=== PATIENT | female | born 1950 | race Caucasian/White ===

== ENCOUNTER 2018-03-08 16:16 | Inpatient (IN) | payer OTHER, BC ==
[~2018-03-08] VITALS: Ht 160 cm; Wt 64.4 kg
--- NOTE | ~2018-03-08 | 2DMMODE ---
[facility] [place] [address] 2 D/M-MODE ECHOCARDIOGRAM Name: ASHLEYJUANITO Room #: 462-P ADM IN [facility]#: [id number] Admission: 03/08/18 Attend Phys: Reagan Norman Discharge: Date of : 48 Date of Service: 03/09/18 0926 Report #: [id number] THIS REPORT FOR: //name// APPROVED REPORT Study performed: 03/09/2018 08:20:11 EXAM: Comprehensive 2D, Doppler, and color-flow Echocardiogram Patient Location: In-Patient Room #: 462 Status: routine BSA: 1.67 HR: 62 bpm BP: 121/65 mmHg Other Information Study Quality: Adequate Indications Syncope 2D Dimensions RVDd: 25.58 mm IVSd: 9.78 (7-11mm) LVOT Diam: 21.77 (18-24mm) LVDd: 41.01 mm PWd: 8.45 (7-11mm) Ascending Ao: 31.84 (22-36mm) LVDs: 29.23 (25-40mm) Aortic Root: 29.33 mm IVC: 22.00 mm Volumes Left Atrial Volume (Systole) Single Plane 4CH: 47.64 mL Single Plane 2CH: 67.21 mL LA ESV Index: 36.00 mL/m2 Aortic Valve AoV Peak Juna.: 1.52 m/s AO Peak Gr.: 9.22 mmHg LVOT Max P.29 mmHg LVOT Max V: 1.04 m/s FANNIE Vmax: 2.54 cm2 Mitral Valve E/A Ratio: 1.2 MV Decel. Time: 243.06 ms MV E Max Juan.: 0.73 m/s MV A Juan.: 0.59 m/s [facility] [place] [address] [place] [address] 2 D/M-MODE ECHOCARDIOGRAM Name: JUANITO RAMIREZ Room #: 462-[facility] IN .R.#: [id number] Admission: 03/08/18 Attend Phys: Reagan Norman Discharge: Date of : 48 Date of Service: 03/09/18 0926 Report #: [id number] PHT: 70.49 ms IVRT: 96.89 ms Pulmonary Valve PV Peak Juan.: 0.72 m/s PV Peak Gr.: 2.06 mmHg Pulmonary Vein P Vein S: 0.56 m/s P Vein A: 0.24 m/s P Vein D: 0.25 m/s P Vein A Dur.: 110.7 msec P Vein S/D Ratio: 2.24 Tricuspid Valve TR Peak Juan.: 2.58 m/s RAP Estimate: 5.00 mmHg TR Peak Gr.: 26.53 mmHg PA Pressure: 32.00 mmHg Left Ventricle The left ventricle is normal size. There is normal left ventricular wall thickness. The left ventricular systolic function is normal. The left ventricular ejection fraction is within the normal range. LVEF is 55-60%. The left ventricular diastolic function is normal. Right Ventricle The right ventricle is normal size. The right ventricular systolic function is normal. Atria Left atrium is at the upper limits of normal. The right atrium size is normal. Aortic Valve The aortic valve is normal in structure. No aortic regurgitation is present. There is no aortic valvular stenosis. Mitral Valve The mitral valve is normal in structure. Mild mitral regurgitation. No evidence of mitral valve stenosis. Tricuspid Valve The tricuspid valve is normal in structure. Mild tricuspid regurgitation. PAP is estimated at 32 mmHg. Pulmonic Valve The pulmonary valve is normal in structure. Trace pulmonic regurgitation. [facility] [address] [place] [address] 2 D/M-MODE ECHOCARDIOGRAM Name: ASHLEYSEAN PANDAE Karan Room #: 462-P [facility] IN .R.#: [id number] Admission: 03/08/18 Attend Phys: Reagan Norman Discharge: Date of : 48 Date of Service: 03/09/18 0926 Report #: [id number] Great Vessels The aortic root is normal in size. IVC is upper limits of normal in size and collapses >50% with inspiration. Pericardium There is no pericardial effusion. <Conclusion> The left ventricle is normal size. There is normal left ventricular wall thickness. The left ventricular systolic function is normal. The right ventricle is normal size. Left atrium is at the upper limits of normal. The aortic valve is normal in structure. Mild mitral regurgitation. Mild tricuspid regurgitation. PAP is estimated at 32 mmHg. <ELECTRONICALLY SIGNED> By: Edson Mclaughlin MD 03/09/18925 5 5 Edson Mclaughlin MD /INF
--- NOTE | ~2018-03-08 | EKG ---
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
--- NOTE | ~2018-03-08 | EEG ---
[facility] [place] [address] ELECTROENCEPHALOGRAM Name: JUANITO RAMIREZ Room #: 462-P [facility] IN M.R.#: [id number] Admission: 03/08/18 Attend Phys: Reagan Rush Discharge: 03/09/18 Date of : 48 Report #: [id number] THIS REPORT FOR: //name// CC: Reagan Rucker Duvall Mike Piña DATE OF SERVICE: 03/09/2018 This patient is being evaluated for seizure disorder. EEG was done by placing the electrodes by standard 10/20 system of electrode placement. Both referential and sequential montages were used for recording. Background activity in this patient's EEG is about 11 Hz and 40 microvolt. This is a well-formed background activity. The patient went to sleep that is associated with bilaterally symmetrical sleep spindle and vertex sharp waves. Photic stimulation is unremarkable. Throughout the record, no active epileptiform activity was noticed. IMPRESSION: This patient's EEG is within normal limit. Thank you very much for this referral. By: 1624 1735 Samson Aj MD /nt
[2018-03-08 16:17] VITALS: BP 134/67
[2018-03-08 16:41] LABS: ABSOLUTE NEUTROPHILS 3.6 thou/uL (1.4-8.2); BASOPHILS 0.5 % (0.0-2.0); EOSINOPHILS 1.5 % (0.0-3.0); HEMATOCRIT 38.3 % (37.0-47.0); HEMOGLOBIN 13.3 gm/dL (12.0-15.0); LYMPHOCYTES 25.9 % (24.0-44.0); MCH 32.5 pg (26.0-34.0); MCHC 34.6 g/dL (28.0-37.0); MONOCYTES 8.3 % (1.0-8.0); PLATELET COUNT 148 thou/uL (150-400); POLYS 63.8 % (36.0-66.0); RBC 4.07 mil/uL (4.20-5.00); RDW 12.8 % (10.5-14.5); WBC 5.6 thou/uL (4.0-11.0)
[2018-03-08 16:54] LABS: ANION GAP 14 mmol/L (7-16); BUN 13 mg/dL (7-18); CALCIUM 9.3 mg/dL (8.5-10.1); CHLORIDE 101 mmol/L (98-107); CO2 18 mmol/L (21-32); GLUCOSE 145 mg/dL (74-106); POTASSIUM 3.7 mmol/L (3.5-5.1); SODIUM 133 mmol/L (136-145)
[2018-03-08 17:02] LABS: TROPONIN-I <0.06 ng/mL (<0.06)
[2018-03-08 17:26] LABS: URINE BILIRUBIN NEGATIVE (Negative); URINE BLOOD NEGATIVE (Negative); URINE CLARITY CLEAR; URINE COLOR YELLOW; URINE GLUCOSE-RANDOM* NEGATIVE (Negative); URINE KETONES 1+ (Negative); URINE NITRITE-REFLEX NEGATIVE (Negative); URINE PROTEIN (DIPSTICK) NEGATIVE (Negative); URINE SPECIFIC GRAVITY 1.025 (1.005-1.035); URINE UROBILINOGEN 0.2 E.U./dl (0.2-1.0)
[2018-03-08 17:28] LABS: URINE LEUKOCYTES-REFLEX TRACE (Negative)
[2018-03-08 18:55] LABS: CHOLESTEROL 179 mg/dL (<200); HDL CHOLESTEROL 73 mg/dL (>40); LDL CHOLESTEROL 89 mg/dL (<100); TC:HDL 2.5 Ratio (Not establshd); TRIGLYCERIDE 86 mg/dL (<150); VLDL 17 mg/dL (<40)
[2018-03-08 18:57] VITALS: BP 138/63
[2018-03-08 19:09] VITALS: BP 144/68
[2018-03-08 19:33] LABS: TSH 3.002 uIU/mL (0.358-3.740)
[2018-03-08] MEDS ORDERED: SINGULAIR 10 MG10 M1 PO (19:59)
[2018-03-08] MEDS ORDERED: RALOXIFENE HCL60 MG PO (20:01)
[2018-03-08] MEDS ORDERED: LOSARTAN POTAS100 MG PO (20:02)
[2018-03-08] MEDS ORDERED: PULMICORT FLE180 MCG INH (20:03)
[2018-03-08] MEDS ORDERED: LIPITOR 20 MG T20 M1 PO (20:03)
[2018-03-08] MEDS ORDERED: OMEPRAZOLE 20 M20 M1 PO (20:04)
[2018-03-08 20:07] VITALS: BP 127/58
[2018-03-08 23:45] VITALS: BP 127/58
[2018-03-09 00:18] VITALS: BP 105/46
[2018-03-09 05:04] VITALS: BP 114/51
[2018-03-09 07:25] VITALS: BP 121/65
[2018-03-09 14:15] VITALS: BP 121/65
== END 2018-03-09 14:54 | disposition home or self-care (01) | DRG 70 ==
LOC: ER 16:16 → 4W 18:24 → EROBS 18:24 → 4W 19:44
PROVIDERS: Emergency Medicine; Hospitalist
DX: G93.41 Metabolic encephalopathy (principal); E43 Unspecified severe protein-calorie malnutrition; R56.9 Unspecified convulsions; R10.9 Unspecified abdominal pain; I95.9 Hypotension, unspecified; J45.909 Unspecified asthma, uncomplicated; K21.9 Gastro-esophageal reflux disease without esophagitis; T50.B95A Adverse effect of other viral vaccines, initial encounter; E78.5 Hyperlipidemia, unspecified; Z88.8 Allergy status to other drugs, medicaments and biological substances; Z88.1 Allergy status to other antibiotic agents; Z91.040 Latex allergy status; Z72.89 Other problems related to lifestyle; Z79.899 Other long term (current) drug therapy
CPT/HCPCS: 10045

== ENCOUNTER 2019-10-25 14:24 | Inpatient (IN) | payer OTHER, BC ==
[~2019-10-25] VITALS: Ht 157.5 cm; Wt 58.5 kg
--- NOTE | ~2019-10-25 | EMS ---
[address] [address] EMS Patient Care Report Name: JUANITO RAMIREZ Room #: PRE M.R.#: [id number] Admission: Attend Phys: Discharge: Date of : 48 Report #: [id number] THIS REPORT FOR: //name// Report Transmitted: 10/25/2019 14:18 EMS Care Summary [facility] MED-ACT Incident [id number] @ 10/25/2019 13:42 Incident Location [address] [place] [address] Patient JUANITO RAMIREZ Female, 68 Years 1950 Patient Address [address] [place] [address] Patient History Hypertension (HTN), Patient Allergies Latex allergy,Bee sting allergy,Levaquin, Patient Medications Cardizem, Chief Complaint seizure Disposition Transported No Lights/[place] Reason Unconscious/Fainting Transported To [facility] Narrative Arrived to a residence to find pt supine on the dining room floor, appearing post-ictal and in the care of [facility]FD[facility]31 personnel. Pts reported that they were seated at the table when pts arms suddenly [address] [address] EMS Patient Care Report Name: JUANITO RAMIREZ Room #: PRE M.R.#: [id number] Admission: Attend Phys: Discharge: Date of : 48 Report #: [id number] stiffened and pt was not responding. Pts went over to pt as she collapsed and guided her to the floor. Pts then called 911. Upon arrival of [facility] pt was not convulsing and was arousable to verbal but was not responding verbally. Pt would open her eyes initially and then close them. A non-fitted surgical mask was applied to pt while supine on the floor. Pts reports that pt has one seizure back in February 2018 and was evaluated at [facility]. Pts states nothing was found to be the cause of the seizure. states pt has not had one since until today. Pts also relays that pt awakened this morning and complained of a headache and not feeling well. Pts was getting ready to take pt to the ER before the seizure happened. Pt was able to stand up with slight assistance but was still confused and had to be guided to the cot. Pt secured with cot straps in semi-fowlers position and taken to MICU for non-emergent transport to [place] as pts requested. Pts mentation improved slightly throughout transport. She was able to report a headache still at the top and posterior part of her head. Pt denied any recent illness, chest pain, fever, blurred vision. Pt states she does feel nauseated. Pt was moved from cot to hospital bed via sheet without incident. Pt report and transfer of care given to ORTHOTIST room #1. Initial Vitals @14:06P: 108,MS Suspected: false @PTAP: 121,R: 24,BP: 160/65,Pain: 0/10,GCS: 14,Glucose: 221,SpO2: 95,Revised Trauma: 12, @14:03P: 130,R: 20,BP: 148/72,GCS: 14,SpO2: 95,Revised Trauma: 12, @14:14P: 104,R: 20,BP: 126/66,GCS: 14,SpO2: 95,Revised Trauma: 12, Assessments @13:51MENTAL:Confused,SKIN:HEENT:Head/Face: No Abnormalities,Neck/Airway: No Abnormalities,LUNG SOUNDS:General: No Abnormalities,ABDOMEN:General: No Abnormalities,PELVIS//GI:Incontinence,EXTREMITIES:Left Arm: No Abnormalities,Right Arm: No Abnormalities,Left Leg: No Abnormalities,Right Leg: No Abnormalities,PULSE:Radial: 3+ Bounding,NEURO:No Abnormalities, Impression Syncope / Fainting Procedures @14:05Saline Lock 15cc (18 ga) Site: Radial-RightResponse: UnchangedSucceeded [facility] [address] [place] [address] EMS Patient Care Report Name: JUANITO RAMIREZ Room #: PRE M.R.#: [id number] Admission: Attend Phys: Discharge: Date of : 48 Report #: [id number] BODY LINER,BP: 160/65 M,PULSE: 121,RR: 24 R,SPO2: 95 Ox,ETCO2: ,B,PAIN: 0,GCS: 14, 13:40,Call Received 13:40,Psap Call 13:42,Dispatched 13:42,En Route 13:48,On Scene 13:50,At Patient 14:03,BP: 148/72 M,PULSE: 130,RR: 20 R,SPO2: 95 Ox,ETCO2: ,BG: ,PAIN: ,GCS: 14, 14:05,Saline Lock 15cc 18 ga Site: Radial-Right,Response: UnchangedSucceeded, 14:06,BP: / M,PULSE: 108,RR: R,SPO2: Ox,ETCO2: ,BG: ,PAIN: ,GCS: , 14:10,Depart Scene 14:14,BP: 126/66 M,PULSE: 104,RR: 20 R,SPO2: 95 Ox,ETCO2: ,BG: ,PAIN: ,GCS: 14, 14:18,At Destination 15:58,Call Closed Disclaimer v1.1 Copyright 2020 [employer] This EMS Care Summary contains data elements from the applicable legal record (which may be displayed differently). It is designed to provide pertinent information for the following purposes: continuity of care, clinical quality, and state data reporting. The complete legal record is available to ED staff and administrators of the receiving hospital in [employer]'s Patient Tracker. All data is provided "as is."
[~2019-10-25 14:24] MED LIST: LIPITOR 20 MG T20 M1 PO; LOSARTAN POTAS100 MG PO; OMEPRAZOLE 20 M20 M1 PO; PULMICORT FLE180 MCG INH; RALOXIFENE HCL60 MG PO; SINGULAIR 10 MG10 M1 PO
[2019-10-25 14:25] VITALS: BP 118/47
[2019-10-25] MEDS ORDERED: PROAIR HFA8.5 GM INH (14:41)
[2019-10-25] MEDS ORDERED: ASA81BEC PO (14:41)
[2019-10-25] MEDS ORDERED: LEVO-T50 MCG PO (14:42)
[2019-10-25] MEDS ORDERED: CARDIZEM SR 60M60 MG PO (14:42)
[2019-10-25] MEDS ORDERED: FLONASE 0.05%50 MCG NARES (14:42)
[2019-10-25] MEDS ORDERED: EPIPEN0.3 MG/0.1 IM (14:42)
[2019-10-25] MEDS ORDERED: PULMICORT FLE180 MCG INH (14:43)
[2019-10-25] MEDS ORDERED: CLARITIN10 M3 PO (14:43)
[2019-10-25 15:05] LABS: ABSOLUTE NEUTROPHILS 4.5 thou/uL (1.4-8.2); BASOPHILS 0.3 % (0.0-2.0); EOSINOPHILS 0.3 % (0.0-3.0); HEMATOCRIT 38.9 % (37.0-47.0); HEMOGLOBIN 13.2 gm/dL (12.0-15.0); LYMPHOCYTES 30.9 % (24.0-44.0); MCH 32.6 pg (26.0-34.0); MCV 96.1 fL (80.0-100.0); MONOCYTES 5.1 % (1.0-8.0); PLATELET COUNT 214 thou/uL (150-400); POLYS 63.4 % (36.0-66.0); RBC 4.05 mil/uL (4.20-5.00); RDW 13.3 % (10.5-14.5); WBC 7.2 thou/uL (4.0-11.0)
[2019-10-25 15:08] LABS: ANION GAP 16 mmol/L (7-16); BUN 15 mg/dL (7-18); CALCIUM 8.4 mg/dL (8.5-10.1); CHLORIDE 98 mmol/L (98-107); CO2 19 mmol/L (21-32); GLUCOSE 220 mg/dL (74-106); POTASSIUM 3.5 mmol/L (3.5-5.1); SODIUM 133 mmol/L (136-145)
[2019-10-25 15:17] LABS: MAGNESIUM 1.9 mg/dL (1.8-2.4); TROPONIN-I <0.06 ng/mL (<0.06)
[2019-10-25 15:43] LABS: URINE BILIRUBIN NEGATIVE (Negative); URINE BLOOD NEGATIVE (Negative); URINE CLARITY CLOUDY; URINE COLOR YELLOW; URINE GLUCOSE-RANDOM* TRACE (Negative); URINE KETONES NEGATIVE (Negative); URINE NITRITE-REFLEX NEGATIVE (Negative); URINE PROTEIN (DIPSTICK) NEGATIVE (Negative); URINE UROBILINOGEN 0.2 E.U./dl (0.2-1.0)
[2019-10-25 15:45] LABS: URINE LEUKOCYTES-REFLEX 1+ (Negative)
[2019-10-25 15:55] LABS: SQUAMOUS 0-3 Few /LPF (0-3)
[2019-10-25 15:56] LABS: CASTS None Seen /LPF (None Seen); CRYSTALS None Seen /LPF (None Seen); URINE RBC 0-2 Rare /HPF (0-2); URINE WBC-REFLEX 6-15 Few /HPF (0-5)
[2019-10-25 19:21] LABS: ALBUMIN 3.8 g/dL (3.4-5.0); TOTAL PROTEIN 6.8 g/dL (6.4-8.2)
[2019-10-25 19:47] LABS: TSH 1.674 uIU/mL (0.358-3.740)
[2019-10-25 21:47] VITALS: BP 123/56
[2019-10-25 21:59] VITALS: BP 123/56
[2019-10-25 22:49] VITALS: BP 122/50
--- NOTE | 2019-10-26 03:20 | NUR ---
PATIENT ARRIVED ON UNIT AT 2205 VIA CART FROM ED ACCOMPANIED BY ED PERSONEL. PATIENT ALERT AND ORIENTED X4. PATIENT ON SEIZURE PRECAUTIONS, RAILS PADDED. PATIENT ALLERGIC TO LATEX, LATEX PRECAUTIONS DONE. UP WITH SBA D/T SEIZURE PRECAUTIONS. DENIES PAIN. SLEPT OFF AND ON DURING NIGHT.
[2019-10-26 04:06] LABS: HEMATOCRIT 35.9 % (37.0-47.0); HEMOGLOBIN 12.3 gm/dL (12.0-15.0); MCH 32.8 pg (26.0-34.0); MCHC 34.2 g/dL (28.0-37.0); MCV 95.9 fL (80.0-100.0); RBC 3.75 mil/uL (4.20-5.00); RDW 13.5 % (10.5-14.5)
[2019-10-26 04:10] LABS: CALCIUM 8.1 mg/dL (8.5-10.1); CREATININE 0.7 mg/dL (0.6-1.0); MAGNESIUM 2.3 mg/dL (1.8-2.4); POTASSIUM 3.4 mmol/L (3.5-5.1)
[2019-10-26 06:28] VITALS: BP 114/70
[2019-10-26 07:44] VITALS: BP 134/73
--- NOTE | 2019-10-26 08:09 | EKG ---
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1950 Requested By: Marcio Villar Order Number: [id number] MD: Alen Hinds Measurements Intervals [place] Rate: 72 P: 45 CA: 177 QRS: 4 QRSD: 97 T: 17 QT: 402 QTc: 440 Interpretive Statements Sinus rhythm Abnormal R-wave progression, early transition Compared to ECG 03/08/2018 16:29:18 No significant changes Electronically Signed On 10-26-2019 8:07:24 CDT by Alen Hinds [email or web address] <ELECTRONICALLY SIGNED> By: Alen Hinds MD, [facility] 10/26/19 0807 151 151 Alen Hinds MD, [facility] /EPI
--- NOTE | 2019-10-26 11:34 | NUR ---
ASSUMED CARE AT 0700. PT ALERT AND ORIENTED. NO CONCERNS. VSSA/RA NSR ON TELE. REGULAR DIET THIS AM. PIV INFUSING WITHOUT ISSUES. AWAITING TESTS TO BE DONE. PT IS UAL, STEADY GAIT. WILL CONTINUE TO MONITOR. NO SIEZURE ACTIVITY SO FAR.
--- NOTE | 2019-10-26 12:29 | NUR ---
ORDERS RECEIVED FOR PT EVAL AND TREAT. Pt ADMITTED WITH HYPERGLYCEMIA AND SEIZURE. Pt IS A0X4. Pt POLITELY DECLINING PT NEEDS. STATED SHE LIVE AT HOME WITH HER . 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 NURSING REPORTED NO CONCERNS. ACUTE PT TO SIGN OFF Pt DECLINING PT SERVICES.
[2019-10-26 14:19] VITALS: BP 123/67
[2019-10-26 15:18] VITALS: BP 123/67
--- NOTE | 2019-10-29 18:41 | HC ---
[facility] [place] [address] CONSULTATION Name: JUANITO RAMIREZ Room #: 452-P [facility] IN .R.#: [id number] Admission: 10/25/19 Attend Phys: Isaiah Singh MD Discharge: 10/26/19 Date of : 48 Report #: [id number] THIS REPORT FOR: cc: FAM - Family physician unknown FAM - Family physician unknown Samson Campbell MD ~ CC: [facility] unknown Isaiah Singh DATE OF SERVICE: 10/26/2019 HISTORY OF PRESENT ILLNESS: This is a 68-year-old female patient who was seen by me in the Emergency Room yesterday and I saw her again today and this is a combined note. The patient had presented with a seizure. She had another seizure in 2018. She saw somebody at [facility]. She drinks alcohol daily. She never followed up and had another seizure which was a brief seizure lasted for a few seconds, but there was a postictal period. She returned back to her baseline. She had an MRI of the brain and EEG, both were normal. REVIEW OF SYSTEMS: Indicate that she does drink multiple drinks of alcohol every day. She does have a history of seizure in 2018. Rest of the 14-point review of systems was noncontributory. PAST MEDICAL HISTORY: Positive for another seizure. FAMILY HISTORY: Negative for congenital epilepsy. SOCIAL HISTORY: She drinks alcohol daily and multiple drinks. PHYSICAL EXAMINATION: Indicates she is alert. She is responsive. She can follow simple and complex command. Cranial nerve examination 2-12 looks unremarkable. She has symmetrical neuromuscular examination. There is no cerebellar sign. I could not look at the patient's fundus. Cardiac and respiratory examinations appear unremarkable. IMPRESSION: This is the patient's second seizure. I discussed with her that she needs to take seizure precautions and she cannot drive at least for 6 months. I told her to stop drinking alcohol altogether, but she does not want to do that. We talked about going on seizure medication and she does not want to do that either. She should take strict seizure precaution and I will suggest stopping alcohol altogether. She has been to [facility] since there is a tertiary care center I think that is where she should follow up. Thank you very much for this referral. About 50 minutes of time was spent in [facility] [address] [place] [address] CONSULTATION Name: ASHLEYJUANITO Karan Room #: 452-P [facility] IN .R.#: [id number] Admission: 10/25/19 Attend Phys: Isaiah Singh MD Discharge: 10/26/19 Date of : 48 Report #: [id number] two combined visits and majority of that time was spent counseling and coordinating. <ELECTRONICALLY SIGNED> By: Samson Campbell MD 10/29/19 1841 1933 2325 Samson Campbell MD /nt
--- NOTE | 2019-10-29 18:41 | EEG ---
[facility] [place] [address] ELECTROENCEPHALOGRAM Name: JUANITO RAMIREZ Room #: 452-P [facility] IN M.R.#: [id number] Admission: 10/25/19 Attend Phys: Isaiah Singh MD Discharge: 10/26/19 Date of : 48 Report #: [id number] THIS REPORT FOR: //name// CC: FAM unknown Isaiah Singh This patient is being evaluated for seizure. EEG was done by placing the electrode by standard 10-20 system of electrode placement. Both referential and sequential montages were used for recording. Background activity in this patient's EEG is about 9 Hz and 30 microvolt. It is a symmetrical activity. Photic stimulation is unremarkable. The patient became drowsy that is associated with bilateral slowing and vertex sharp waves. Throughout the record, no active epileptiform activity was noticed. IMPRESSION: This patient's EEG is unremarkable. <ELECTRONICALLY SIGNED> By: Samson Campbell MD 10/29/19 1841 1412 1455 Samson Capmbell MD /nt
== END 2019-10-26 15:48 | disposition home or self-care (01) | DRG 101 ==
LOC: ER 14:24 → 4W 19:16 → EROBS 19:16 → 4W 22:46
PROVIDERS: Emergency Medicine; ADMIT Internal Medicine
DX: R56.9 Unspecified convulsions (principal); N39.0 Urinary tract infection, site not specified; J45.909 Unspecified asthma, uncomplicated; M81.0 Age-related osteoporosis without current pathological fracture; M19.90 Unspecified osteoarthritis, unspecified site; R73.9 Hyperglycemia, unspecified; E03.9 Hypothyroidism, unspecified; Z88.1 Allergy status to other antibiotic agents; Z91.040 Latex allergy status; Z79.899 Other long term (current) drug therapy
CPT/HCPCS: 10045

== ENCOUNTER 2021-07-20 18:39 | Emergency (ER) | payer OTHER, BC ==
[~2021-07-20] VITALS: Ht 160 cm; Wt 63.5 kg
--- NOTE | ~2021-07-20 | EMS ---
[address] [address] EMS Patient Care Report Name: JUANITO RAMIREZ Room #: DEP Sukhdeep#: [id number] Admission: 07/20/21 Attend Phys: Discharge: 07/20/21 Date of : 48 Report #: [id number] THIS REPORT FOR: //name// Report Transmitted: 07/21/2021 02:08 EMS Care Summary [facility] MED-ACT Incident [id number] @ 07/20/2021 17:52 Incident Location [address] [place] [address] Patient JUANITO RAMIREZ Female, 70 Years 1950 Patient Address [address] [place] [address] Patient History Hypertension (HTN),Cardiac Condition - Other, Patient Allergies No known allergies, Patient Medications Cardizem, Atorvastatin, Raloxifene, Losartan, Chief Complaint Seizure Disposition Transported No Lights/[place] Reason Convulsions/Seizure Transported To [facility] Narrative Arrived to find pt seated on the couch, awake, alert, confused, skin color normal and no apparent traumatic injuries. Pt appeared in no obvious distress. Pt states that pt has been feeling under the weather with chills today. states that about 5-8min ago the pt was seated on the couch when she [address] [address] EMS Patient Care Report Name: JUANITO RAMIREZ Room #: DEP [facility]#: [id number] Admission: 07/20/21 Attend Phys: Discharge: 07/20/21 Date of : 48 Report #: [id number] had a full body seizure lasting approx. 1 min. states only one seizure and the pt did not fall or hit her head. Pt was slightly confused and postictal on EMS arrival but improved slightly during transport. Pt states no seizure hx for pt except for having a single seizure after receiving the flu vaccine 2 years ago. states the pt was perfectly fine yesterday. Pt contact, primary, vitals from , secondary and physical exam, pt had bitten her tongue slightly on the L side with no current bleeding. Pt able to stand and walk with assistance to the cot outside the front door. transport, IV access, pt became nauseous in route and was given 4mg ODT zofran. Pt reports slight improvement. radio report. Pt delivered to er rm 9 and moved to bed via sheet. report to RN and pt care transferred. 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,BP: 166/73 M,PULSE: 142,RR: 16 R,SPO2: 97 Ox,ETCO2: ,B,PAIN: ,GCS: 14, 17:50,Call Received 17:50,Psap Call 17:52,Dispatched 17:53,En Route 18:05,On Scene 18:06,At Patient 18:07,ALS Assessment,Response: UnchangedSucceeded, 18:20,IV Therapy - Saline Lock 10cc 18 ga Site: Hand-Right,Response: UnchangedSucceeded, 18:22,BP: / M,PULSE: 102,RR: 14 R,SPO2: 96 Ox,ETCO2: ,BG: ,PAIN: 0,GCS: 14, 18:23,BP: 152/73 M,PULSE: 102,RR: R,SPO2: 90 Ox,ETCO2: ,BG: ,PAIN: ,GCS: , [facility] [address] [place] [address] EMS Patient Care Report Name: JUANITO RAMIREZ Room #: [facility] Sukhdeep#: [id number] Admission: 07/20/21 Attend Phys: Discharge: 07/20/21 Date of : 48 Report #: [id number] 18:25,Depart Scene 18:32,Alcohol Wipes/Pads - 1 Other - Inhalation,Response: Unchanged 18:33,BP: / M,PULSE: 101,RR: R,SPO2: 97 Ox,ETCO2: ,BG: ,PAIN: ,GCS: 14, 18:34,Ondansetron - 4 Milligrams (mg) - Oral,Response: Improved 18:35,At Destination 18:55,Call Closed Disclaimer v1.1 Copyright 2021 [employer] This EMS Care Summary contains data elements from the applicable legal record (which may be displayed differently). It is designed to provide pertinent information for the following purposes: continuity of care, clinical quality, and state data reporting. The complete legal record is available to ED staff and administrators of the receiving hospital in [employer]'s Patient Tracker. All data is provided "as is."
[~2021-07-20 18:39] MED LIST changes: +ASA81BEC PO; +CARDIZEM SR 60M60 MG PO; +CLARITIN10 M3 PO; +EPIPEN0.3 MG/0.1 IM; +FLONASE 0.05%50 MCG NARES; +LEVO-T50 MCG PO; +PROAIR HFA8.5 GM INH
[2021-07-20 19:07] LABS: URINE BILIRUBIN NEGATIVE (Negative); URINE BLOOD NEGATIVE (Negative); URINE CLARITY CLEAR; URINE COLOR YELLOW; URINE GLUCOSE-RANDOM* NEGATIVE (Negative); URINE KETONES NEGATIVE (Negative); URINE LEUKOCYTES-REFLEX NEGATIVE (Negative); URINE NITRITE-REFLEX NEGATIVE (Negative); URINE PROTEIN (DIPSTICK) TRACE (Negative); URINE SPECIFIC GRAVITY 1.025 (1.005-1.035); URINE UROBILINOGEN 0.2 E.U./dl (0.2-1.0)
[2021-07-20 19:13] LABS: HEMATOCRIT 36.7 % (37.0-47.0); HEMOGLOBIN 12.5 gm/dL (12.0-15.0); MCHC 34.1 g/dL (28.0-37.0); MCV 93.7 fL (80.0-100.0); RBC 3.92 mil/uL (4.20-5.00); RDW 13.1 % (10.5-14.5)
[2021-07-20 19:24] LABS: ANION GAP 15 mmol/L (7-16); BUN 15 mg/dL (7-18); CALCIUM 8.6 mg/dL (8.5-10.1); CHLORIDE 97 mmol/L (98-107); CO2 15 mmol/L (21-32); CREATININE 0.9 mg/dL (0.6-1.0); GLUCOSE 161 mg/dL (74-106); POTASSIUM 3.6 mmol/L (3.5-5.1); SODIUM 127 mmol/L (136-145)
[2021-07-20 19:25] LABS: AMP/METHAMP Negative (Negative); BARBITURATES Negative (Negative); BENZODIAZEPINES Negative (Negative); COCAINE Negative (Negative); METHADONE Negative (Negative); OPIATES Negative (Negative); PCP Negative (Negative)
[2021-07-20 19:29] LABS: ALBUMIN 3.7 g/dL (3.4-5.0); MAGNESIUM 2.2 mg/dL (1.8-2.4); SALICYLATE < 2.8 mg/dL (2.8-20.0); SGOT 27 U/L (15-37); SGPT 32 U/L (14-59); TOTAL BILIRUBIN 0.3 mg/dL (0.2-1.0); TOTAL PROTEIN 6.5 g/dL (6.4-8.2)
[2021-07-20 22:47] VITALS: BP 121/52
--- NOTE | 2021-07-21 07:39 | EKG ---
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1950 Requested By: Martínez Izaguirre Order Number: [id number] MD: Frantz Mcadams Measurements Intervals [place] Rate: 91 P: 35 [place]: 160 QRS: -11 QRSD: 98 T: 6 QT: 372 QTc: 458 Interpretive Statements Sinus rhythm Abnormal R-wave progression, early transition Baseline wander in lead(s) V1,V2 Compared to ECG 10/25/2019 15:11:06 No significant changes Electronically Signed On 07-21-2021 7:39:05 POULTRY DEBEAKER by Frantz Mcadams [email or web address] <ELECTRONICALLY SIGNED> By: Frantz Mcadams MD, [facility] 07/21/21 0739 1844 1844 Frantz Mcadams MD, FAC /EPI
== END 2021-07-20 23:04 | disposition home or self-care (01) ==
LOC: ER 18:39
PROVIDERS: Emergency Medicine
DX: E87.1 Hypo-osmolality and hyponatremia (principal); Z20.822 Contact with and (suspected) exposure to COVID-19; J45.909 Unspecified asthma, uncomplicated; M81.0 Age-related osteoporosis without current pathological fracture; I10 Essential (primary) hypertension; M19.90 Unspecified osteoarthritis, unspecified site; Z79.82 Long term (current) use of aspirin; Z79.51 Long term (current) use of inhaled steroids; Z79.899 Other long term (current) drug therapy; Z79.891 Long term (current) use of opiate analgesic; Z91.040 Latex allergy status; Z88.8 Allergy status to other drugs, medicaments and biological substances; Z91.030 Bee allergy status